=== PATIENT | male | born 1950 | race Caucasian/White ===

== ENCOUNTER 2018-01-20 11:35 | Emergency (ER) | payer OTHER, SELFPAY ==
[2018-01-20 11:41] VITALS: RESP 17; TEMP 37.2; O2SAT 96
--- NOTE | 2018-01-20 11:55 | W.ED.GENAD ---
Discharge Plan Disposition Patient Disposition: HOME Condition: Stable Discharge Details Chief Complaint: Orthopedic Clinical Impression: Injury of knee, left Primary Care Provider: Batool Padilla ED Provider: Bea Garcia Home Meds and New Rx's Prescriptions: Continue ibuprofen [Motrin IB] 200 MG tablet 200 mg PO PRN RF: 0 aspirin [Aspir-Low] 81 MG tablet,delayed release (DR/EC) 81 mg PO DAILY RF: 0 Discharge Instructions Instructions: Knee Pain (ED), Knee Immobilizer (ED) Additional Instructions: Please return immediately to the emergency department if you develop any new or worsening symptoms or if you become otherwise concerned. It is extremely important that you make an appointment to be seen by your primary care doctor and by an orthopedic surgeon in follow-up this visit. Stand Alone Forms: Work Release Referrals: Saul Muhammad MD [[facility] STAFF PHYSICIAN] - Batool Padilla MD [Primary Care Provider] - Medical Decision Making Saritha Guzman is a 67-year-old man without history of major medical problems presenting to the emergency department with knee pain after hyperextending his knee with mechanical fall. On exam patient is very well and nontoxic appearing. There is no effusion and no anterior, medial, or lateral tenderness palpation of the knee. Diffuse posterior tenderness to palpation of the posterior knee without edema or fluctuance. DP pulses are intact and symmetric. The left leg is neurovascularly intact. Exam/history is not consistent with popliteal or other vascular trauma, not mechanical fall, significant injury to the other extremities, head, neck, thorax, abdomen. Low suspicion for fracture. Concern for ligamentous versus meniscal injury. Plan for x-rays, ibuprofen. X-ray shows no acute process. Plan for knee immobilizer, patient reports that he has cane at home to use with knee immobilizer. Plan for ibuprofen/Tylenol and outpatient follow-up with orthopedics. Patient bearing weight with the immobilizer without issue. Lengthy discussion with patient regarding return to emergency department precautions and reports of outpatient follow-up with PCP and orthopedics. Patient is amenable to the plan. Medical Records Medical records reviewed: Yes I reviewed the patient's medical records. Imaging Data Radiologic Study: Attestation: I personally reviewed and interpreted this imaging study as follows: Radiologist's impression: LEFT KNEE: The joint spaces are well maintained. There is mild periarticular spurring. No fracture is identified. IMPRESSION: Mild degenerative changes. HPI General Mode of arrival: ambulatory. Date/Time Provider Initiated Documentation: 01/20/18 11:54. Limitations to Documentation: no limitations. Information obtained by: patient, family, RN notes reviewed and old records reviewed. HPI Narrative: Saritha Guzman is a 67 y/o man without history of major medical problems presenting to the emergency department with knee pain. 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 He was climbing down from his [place]aval[place] when he slipped and fell, landing with his knee hyperextended. Did not hit his head or lose consciousness. Patient reports no preceding symptoms, and that fall was mechanical. Patient reports that he has pain with flexing his knee. Pain is located in the posterior aspect of his knee. He denies any other injury or any other pain. He has no numbness, tingling, weakness. No swelling. Patient reports mild dry cough over the past 2 weeks, otherwise has been in his usual state of health without symptoms. Eating and drinking as usual. No recent travel. No prior surgery or major injuries to the left knee. Related Data Home Medications Medication Instructions Recorded Confirmed ibuprofen [Motrin IB] 200 mg PO PRN 08/07/14 01/20/18 aspirin [Aspir-Low] 81 mg PO DAILY tab 09/24/17 01/20/18 Allergies Allergy/AdvReac Type Severity Reaction Status Date / Time No Known Drug Allergies Allergy Unverified 01/20/18 12:06 General Stated Complaint: Orthopedic ARMANDO: 4 Review of Systems Review of Systems Constitutional: denies fevers Eyes: denies eye pain ENT: denies facial pain, dental pain, sore throat Cardiovascular: denies chest pain Respiratory: denies SOB, cough GI: denies abdominal pain, vomiting, diarrhea : denies flank pain MSK: denies back pain, neck pain, myalgias, reports left knee pain Skin: denies rash Neuro: denies headaches, lightheadedness, weakness, n/t PFSH Family History Mother Stroke Father No problems noted. RGT ELBOW SURGERY (05/28/09) Family History Mother Stroke Father No problems noted. Social History Smoking/Tobacco Use Status: Current every day Surgical History RGT ELBOW SURGERY (05/28/09) Social History Smoking/Tobacco Use Status: Current every day Exam Narrative Exam Narrative: Constitutional: well and [id number], pleasant, conversing normally HENT: head atraumatic, normocephalic normal inspection, mucous membranes moist Eyes: conjunctiva normal, sclera normal, pupils 3mm b/l Neck: no stridor, normal ROM, trachea midline Chest: normal inspection Resp: normal work of breathing Cardio: normal rate, normal rhythm Skin: warm, dry, normal color, no rash Neuro: alert, not altered, grossly non-focal, normal tone Ext: no edema. Left knee nontender to palpation over anterior, medial, lateral aspect. Tenderness palpation over the posterior aspect that reproduces pain. There is no effusion or edema of the knee. No overlying skin changes. DP pulses and popliteal pulses are intact and symmetric. Negative anterior/posterior drawer test. Pain with valgus stress. Left hip, thigh, lower leg, ankle nontender to palpation. Patient able to range the knee fully, though with some pain. Psych: normal mood, normal affect, normal behavior Course Vital Signs Temperature 37.2 C 01/20/18 11:41 Respiratory Rate 17 01/20/18 11:41 Pulse Oximetry 96 01/20/18 11:41 Temperature 37.2 C 01/20/18 11:41 Respiratory Rate 17 01/20/18 11:41 Blood Pressure Position Supine 01/20/18 11:41 Pulse Oximetry 96 01/20/18 11:41 Oxygen Delivery Method Room Air 01/20/18 11:41 Oxygen Flow Rate 0 01/20/18 11:41 Pain Level 10 01/20/18 11:41
--- NOTE | 2018-01-20 12:01 | ED.GENADUL_ITS ---
Discharge Plan Disposition Patient Disposition: HOME Condition: Stable Discharge Details Chief Complaint: Orthopedic Clinical Impression: Injury of knee, left Primary Care Provider: Batool Padilla ED Provider: Bea Garcia Home Meds and New Rx's Prescriptions: Continue ibuprofen [Motrin IB] 200 MG tablet 200 mg PO PRN RF: 0 aspirin [Aspir-Low] 81 MG tablet,delayed release (DR/EC) 81 mg PO DAILY RF: 0 Discharge Instructions Instructions: Knee Pain (ED), Knee Immobilizer (ED) Additional Instructions: Please return immediately to the emergency department if you develop any new or worsening symptoms or if you become otherwise concerned. It is extremely important that you make an appointment to be seen by your primary care doctor and by an orthopedic surgeon in follow-up this visit. Stand Alone Forms: Work Release Referrals: Saul Muhammad MD [[facility] STAFF PHYSICIAN] - Batool Padilla MD [Primary Care Provider] - Medical Decision Making Saritha Gumzan is a 67-year-old man without history of major medical problems presenting to the emergency department with knee pain after hyperextending his knee with mechanical fall. On exam patient is very well and nontoxic appearing. There is no effusion and no anterior, medial, or lateral tenderness palpation of the knee. Diffuse posterior tenderness to palpation of the posterior knee without edema or fluctuance. DP pulses are intact and symmetric. The left leg is neurovascularly intact. Exam/history is not consistent with popliteal or other vascular trauma, not mechanical fall, significant injury to the other extremities, head, neck, thorax, abdomen. Low suspicion for fracture. Concern for ligamentous versus meniscal injury. Plan for x-rays, ibuprofen. X-ray shows no acute process. Plan for knee immobilizer, patient reports that he has cane at home to use with knee immobilizer. Plan for ibuprofen/Tylenol and outpatient follow-up with orthopedics. Patient bearing weight with the immobilizer without issue. Lengthy discussion with patient regarding return to emergency department precautions and reports of outpatient follow-up with PCP and orthopedics. Patient is amenable to the plan. Medical Records Medical records reviewed: Yes I reviewed the patient's medical records. Imaging Data Radiologic Study: Attestation: I personally reviewed and interpreted this imaging study as follows: Radiologist's impression: LEFT KNEE: The joint spaces are well maintained. There is mild periarticular spurring. No fracture is identified. IMPRESSION: Mild degenerative changes. HPI General Mode of arrival: ambulatory . Date/Time Provider Initiated Documentation: 01/20/18 11:54 . Limitations to Documentation: no limitations . Information obtained by: patient, family, RN notes reviewed and old records reviewed . HPI Narrative: Saritha Guzman is a 67 y/o man without history of major medical problems presenting to the emergency department with knee pain. 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 He was climbing down from his zavaleta when he slipped and fell, landing with his knee hyperextended. Did not hit his head or lose consciousness. Patient reports no preceding symptoms, and that fall was mechanical. Patient reports that he has pain with flexing his knee. Pain is located in the posterior aspect of his knee. He denies any other injury or any other pain. He has no numbness, tingling, weakness. No swelling. Patient reports mild dry cough over the past 2 weeks, otherwise has been in his usual state of health without symptoms. Eating and drinking as usual. No recent travel. No prior surgery or major injuries to the left knee. Related Data Home Medications Medication Instructions Recorded Confirmed ibuprofen [Motrin IB] 200 mg PO PRN 08/07/14 01/20/18 aspirin [Aspir-Low] 81 mg PO DAILY tab 09/24/17 01/20/18 Allergies Allergy/AdvReac Type Severity Reaction Status Date / Time No Known Drug Allergies Allergy Unverified 01/20/18 12:06 General Stated Complaint: Orthopedic ARMANDO: 4 Review of Systems Review of Systems Constitutional: denies fevers Eyes: denies eye pain ENT: denies facial pain, dental pain, sore throat Cardiovascular: denies chest pain Respiratory: denies SOB, cough GI: denies abdominal pain, vomiting, diarrhea : denies flank pain MSK: denies back pain, neck pain, myalgias, reports left knee pain Skin: denies rash Neuro: denies headaches, lightheadedness, weakness, n/t PFSH Family History Mother Stroke Father No problems noted. RGT ELBOW SURGERY (05/28/09) Family History Mother Stroke Father No problems noted. Social History Smoking/Tobacco Use Status: Current every day Surgical History RGT ELBOW SURGERY (05/28/09) Social History Smoking/Tobacco Use Status: Current every day Exam Narrative Exam Narrative: Constitutional: well and [id number], pleasant, conversing normally HENT: head atraumatic, normocephalic normal inspection, mucous membranes moist Eyes: conjunctiva normal, sclera normal, pupils 3mm b/l Neck: no stridor, normal ROM, trachea midline Chest: normal inspection Resp: normal work of breathing Cardio: normal rate, normal rhythm Skin: warm, dry, normal color, no rash Neuro: alert, not altered, grossly non-focal, normal tone Ext: no edema. Left knee nontender to palpation over anterior, medial, lateral aspect. Tenderness palpation over the posterior aspect that reproduces pain. There is no effusion or edema of the knee. No overlying skin changes. DP pulses and popliteal pulses are intact and symmetric. Negative anterior/ posterior drawer test. Pain with valgus stress. Left hip, thigh, lower leg, ankle nontender to palpation. Patient able to range the knee fully, though with some pain. Psych: normal mood, normal affect, normal behavior Course Vital Signs Temperature 37.2 C 01/20/18 11:41 Respiratory Rate 17 01/20/18 11:41 Pulse Oximetry 96 01/20/18 11:41 Temperature 37.2 C 01/20/18 11:41 Respiratory Rate 17 01/20/18 11:41 Blood Pressure Position Supine 01/20/18 11:41 Pulse Oximetry 96 01/20/18 11:41 Oxygen Delivery Method Room Air 01/20/18 11:41 Oxygen Flow Rate 0 01/20/18 11:41 Pain Level 10 01/20/18 11:41
[2018-01-20] MEDS: Ibuprofen 600 MG TAB PO (12:09)
--- NOTE | 2018-01-20 12:25 | DI.RAD_ITS ---
SYMPTOM/DIAGNOSIS: TRAUMA, HYPEREXTENDED, POST KNEE PAIN LEFT KNEE: The joint spaces are well maintained. There is mild periarticular spurring. No fracture is identified. IMPRESSION: Mild degenerative changes.
== END 2018-01-20 13:31 | disposition home or self-care (01) ==
PROVIDERS: Emergency Provider Student in an Organized Health Care Education/Training Program; PCP Internal Medicine
DX: M25.562 Pain in left knee (principal); W01.0XXA Fall on same level from slipping, tripping and stumbling without subsequent striking against object, initial encounter
CPT/HCPCS: 73562; 99283; 99282; L1830

== ENCOUNTER 2018-02-28 01:30 | Outpatient (CLI) | payer OTHER, SELFPAY ==
--- NOTE | 2018-02-28 14:42 | DI.MRI_ITS ---
SYMPTOMS/DIAGNOSIS: KNEE STRAIN MRI OF THE LEFT KNEE: Comparison is made with plain films dated January,. Fat-suppressed T2 axial, proton density and fat-suppressed T2 coronal and sagittal and proton density oblique sagittal sequences were performed. The cruciate and collateral ligaments and extensor mechanism appear intact. There is a small joint effusion. There is a question of two small loose bodies seen posterior to the medial femoral condyle. There is a focal osteochondral defect involving the lateral aspect of the medial femoral condyle, near the intercondylar notch. This defect measures 6-7 mm in size. There is cartilage thinning extending down to bone involving the medial aspect of the lateral tibial plateau anteriorly. There is a mild amount of edema in the medial patellar facet cartilage. Degenerative changes are seen in both menisci. No superimposed tear is seen. IMPRESSION: Osteochondral defect of the lateral aspect of the medial femoral condyle and posterior joint space loose body. A small cartilage defect is also seen at the lateral tibial plateau and anterior aspect of the lateral femoral condyle.
== END 2018-02-28 01:50 ==
PROVIDERS: PCP Internal Medicine; Visit Provider Orthopaedic Surgery
DX: M25.562 Pain in left knee (principal); M95.8 Other specified acquired deformities of musculoskeletal system; M23.42 Loose body in knee, left knee
CPT/HCPCS: 73721

== ENCOUNTER 2018-03-30 09:56 | Outpatient (CLI) | payer SELFPAY ==
--- NOTE | 2018-03-31 18:13 | W.PREOPHP ---
Date of service: 03/30/18 Time of Service: 08:01 Assessment and Plan (1) Internal derangement of knee: Current visit: Yes Status: Acute The patient is instructed of knee anatomy, the typical operative procedure with an arthroscopic investigation of his knee and procedures used to address any pathology like a meniscal tear. the typical postop course and possible complications that can occur with an arthroscopy are outlined. 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 At a 1212 office visit he was seen complaining of weightbearing pain and pain with knee flexion with one episode of giving way with no large effusions evident. He was sent to PT which initially seemed to help then he plateaued in improvement. He began to be troubled more by night pain and a dull constant ache with sitting laterally with his knee flexed using Motrin 800 mg 3 times daily. To max out all conservative measures an intra-articular injection of cortisone was tried on 03/03/2018. This initially was encouraging providing some help with his pain but then he began to note more pain with squatting and with activities with a flexed knee posture like exiting the toilet. He cannot perform the activities he would like to in life so an arthroscopic exam of his knee was suggested by Dr. Christopher looking for any internal derangement. Pertinent Surgical Information Denies previous medical history of: stroke, TIA, [place], use of sublingual nitroglycerin, GERD, seizures, diabetes, thyroid disease, sleep apnea, liver disease, hepatitis, hematologic disorders Denies previous complications from surgery or anesthesic agents with respect to high fever, prolonged vomiting and difficulty waking up Review of Systems Constitutional Denies fever(s) and Denies headache(s) ENT Denies headache(s), Denies nasal congestion, Denies nasal discharge and Denies sore throat Cardiovascular Denies chest pain, Denies chest pain with activity, Denies palpitations, Denies dyspnea on exertion, Denies orthopnea and Denies paroxysmal nocturnal dyspnea Respiratory Denies cough, Denies excessive phlegm production, Denies pain on inspiration, Denies dyspnea on exertion and Denies wheezing Gastrointestinal Denies abdominal pain, Denies melena, Denies hematochezia, Denies nausea and Denies vomiting Genitourinary Denies hematuria, Denies dysuria and Denies urinary frequency Musculoskeletal Reports as per HPI Neurologic Denies headache(s) Psychiatric Denies anxiety and Denies depression Endocrine Denies palpitations Allergic/Immunologic Denies wheezing PFSH Medical History BMI (body mass index) 20.0-29.9 (Acute) Encounter for colonoscopy due to history of adenomatous colonic polyps (Chronic) Surgical History RGT ELBOW SURGERY (Resolved 05/28/09) Social History household members: spouse marital status: leisure activities: clubs Smoking and Tabacco status: Current every day Tobacco: How many years used: 40 alcohol intake: never Meds Home Medications Medication Instructions Recorded Confirmed Type ibuprofen [Motrin IB] 200 mg PO PRN 08/07/14 03/30/18 History aspirin [Aspir-Low] 81 mg PO DAILY tab 09/24/17 03/30/18 History Allergies Allergy/AdvReac Type Severity Reaction Status Date / Time No Known Drug Allergies Allergy Verified 03/30/18 08:05 Exam Const General: cooperative HENMT Throat: posterior oropharynx normal Eyes General: appearance normal, both eyes and all related structures Conjunctivae: conjunctivae normal Sclera: sclerae normal Neck Neck: no JVD Carotids: normal carotid upstroke and no bruits Resp Effort & Inspection: normal respiratory effort and able to speak in complete sentences Auscultation: clear to auscultation bilaterally, no rales, no rhonchi and no wheezes Cardio Rate: regular rate Heart Sounds: S1 normal, S2 normal and no murmurs Bruits: no abdominal aortic bruits Pulses: normal peripheral pulses Other: No pulsatile mass noted with palpation over the abdominal aorta GI Palpation: soft and no hepatosplenomegaly Auscultation: normal bowel sounds General: No CVA tenderness Extrem General: muscle atrophy Other: positive lateral joint line tenderness, positive thessaly,full extensionwith flexion intact to 120
--- NOTE | 2018-03-31 18:58 | HPE_ITS ---
Date of service: 03/30/18 Time of Service: 08:01 Assessment and Plan (1) Internal derangement of knee: Current visit: Yes Status: Acute The patient is instructed of knee anatomy, the typical operative procedure with an arthroscopic investigation of his knee and procedures used to address any pathology like a meniscal tear. the typical postop course and possible complications that can occur with an arthroscopy are outlined. 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 At a 1212 office visit he was seen complaining of weightbearing pain and pain with knee flexion with one episode of giving way with no large effusions evident. He was sent to PT which initially seemed to help then he plateaued in improvement. He began to be troubled more by night pain and a dull constant ache with sitting laterally with his knee flexed using Motrin 800 mg 3 times daily. To max out all conservative measures an intra- articular injection of cortisone was tried on 03/03/2018. This initially was encouraging providing some help with his pain but then he began to note more pain with squatting and with activities with a flexed knee posture like exiting the toilet. He cannot perform the activities he would like to in life so an arthroscopic exam of his knee was suggested by Dr. Christopher looking for any inte rnal derangement. Pertinent Surgical Information Denies previous medical history of: stroke, TIA, [place], use of sublingual nitroglycerin, GERD, seizures, diabetes, thyroid disease, sleep apnea, liver disease, hepatitis, hematologic disorders Denies previous complications from surgery or anesthesic agents with respect to high fever, prolonged vomiting and difficulty waking up Review of Systems Constitutional Denies fever(s) and Denies headache(s) ENT Denies headache(s), Denies nasal congestion, Denies nasal discharge and Denies sore throat Cardiovascular Denies chest pain, Denies chest pain with activity, Denies palpitations, Denies dyspnea on exertion, Denies orthopnea and Denies paroxysmal nocturnal dyspnea Respiratory Denies cough, Denies excessive phlegm production, Denies pain on inspiration, Denies dyspnea on exertion and Denies wheezing Gastrointestinal Denies abdominal pain, Denies melena, Denies hematochezia, Denies nausea and Denies vomiting Genitourinary Denies hematuria, Denies dysuria and Denies urinary frequency Musculoskeletal Reports as per HPI Neurologic Denies headache(s) Psychiatric Denies anxiety and Denies depression Endocrine Denies palpitations Allergic/Immunologic Denies wheezing PFSH Medical History BMI (body mass index) 20.0-29.9 (Acute) Encounter for colonoscopy due to history of adenomatous colonic polyps (Chronic) Surgical History RGT ELBOW SURGERY (Resolved 05/28/09) Social History household members: spouse marital status: leisure activities: clubs Smoking and Tabacco status: Current every day Tobacco: How many years used: 40 alcohol intake: never Meds Home Medications Medication Instructions Recorded Confirmed Type ibuprofen [Motrin IB] 200 mg PO PRN 08/07/14 03/30/18 History aspirin [Aspir-Low] 81 mg PO DAILY tab 09/24/17 03/30/18 History Allergies Allergy/AdvReac Type Severity Reaction Status Date / Time No Known Drug Allergies Allergy Verified 03/30/18 08:05 Exam Const General: cooperative HENMT Throat: posterior oropharynx normal Eyes General: appearance normal, both eyes and all related structures Conjunctivae: conjunctivae normal Sclera: sclerae normal Neck Neck: no JVD Carotids: normal carotid upstroke and no bruits Resp Effort & Inspection: normal respiratory effort and able to speak in complete sentences Auscultation: clear to auscultation bilaterally, no rales, no rhonchi and no wheezes Cardio Rate: regular rate Heart Sounds: S1 normal, S2 normal and no murmurs Bruits: no abdominal aortic bruits Pulses: normal peripheral pulses Other: No pulsatile mass noted with palpation over the abdominal aorta GI Palpation: soft and no hepatosplenomegaly Auscultation: normal bowel sounds General: No CVA tenderness Extrem General: muscle atrophy Other: positive lateral joint line tenderness, positive thessaly,full extensionwith flexion intact to 120
== END 2018-03-30 10:16 ==
PROVIDERS: PCP Internal Medicine; Visit Provider Orthopaedic Surgery
DX: M23.92 Unspecified internal derangement of left knee (principal); Z01.818 Encounter for other preprocedural examination

== ENCOUNTER 2018-04-04 07:28 | Day surgery (SDC) | payer OTHER, SELFPAY ==
[2018-04-04] VITALS (8 sets, daily range): BP systolic 138–173; BP diastolic 72–94; PULSE 70–82; RESP 9–18; TEMP 36.4–36.7; O2SAT 94–98
[2018-04-04] MEDS: Lactated Ringers 1,000 ML 80 ML IV (08:30)
--- NOTE | 2018-04-04 10:14 | PDOC.DSDIS_ITS ---
Discharge Plan Disposition Patient Disposition: HOME Condition: Good Discharge Details Reason For Visit: INTERNAL DERANGEMENT (L) KNEE Attending Provider: Tremayne Christopher Primary Care Provider: Batool Padilla Home Meds and New Rx's Prescriptions: New ibuprofen 800 mg tablet 800 mg PO TID Qty: 30 RF: 0 oxycodone-acetaminophen 5-325 mg tablet 1 tab PO Q6H PRN (Reason: pain) Qty: 14 RF: 0 Continued ibuprofen [Motrin IB] 200 MG tablet 800 mg PO Q8H PRN PRNRF: 0 aspirin [Aspir-Low] 81 MG tablet,delayed release (DR/EC) 81 mg PO DAILY RF: 0 Discharge Instructions Additional Instructions: Elevate L leg on 1-2 pillows as much as possible for next 48 hours. Apply cryocuff to L knee continuously overnite. Tomorrow, start to use cryocuff 4 times/day for 1 hour each time. Crutches to walk. Put as much weight on L leg as your pain allows. Discontinue crutches when you can step fully on L leg with only mild pain. May remove dressings, shower and get incisions wet after 48 hours. Leave incisions uncovered when they are dry and sealed. Outpatient physical therapy on Wed to begin rehab L knee post-arthroscopic partial lateral meniscectomy. Follow up in 's office in 2 weeks. Referrals: Tremayne Christopher MD [ [facility] ST[facility]FF PHYSICIAN] - (f/u in 2 weeks) Equipment/Supplies: Partial Weight Bearing Crutches Activity:: Activity as Tolerated Remove Dressings/Wound Care:: 48 hours Shower/Bathe:: 48 hours Diet:: As Tolerated Discharge Orders Discharge Orders: Discharge Order (Routine); Ordered 04/04/18 Ordered By: Tremayne Christopher DS: Diagnosis Discharge Diagnosis (1) Internal derangement of knee: Status: Acute
[2018-04-04] MEDS: oxyCODONE-CR 10 MG TABCR PO (11:45)
--- NOTE | 2018-04-06 13:44 | ROE_ITS ---
REPORT OF OPERATIVE PROCEDURE DATE OF PROCEDURE April 04, 2018 PREOPERATIVE DIAGNOSIS Internal derangement left knee. POSTOPERATIVE DIAGNOSIS Internal derangement left knee due to torn left lateral meniscus. PROCEDURE Arthroscopic partial left lateral meniscectomy with limited chondroplasty medial femoral condyle, johnson ited synovectomy. ANESTHESIA General. SURGEON Tremayne Christopher M.D. INDICATIONS This is a 67-year-old white male who has had ongoing pain and swelling in his left knee for over six months. This has failed to respond to conservative treatment, including injection. Because of failure to respond to conservative treatment, arthroscopy was recommended. The risks and complications of th e procedure were explained to the patient in detail preop. PROCEDURE The patient was taken to the Operating Room on 04/04/2018. He was placed supine on the Operating Table . A general anesthetic was administered. The left thigh was placed in the arthroscopic leg aviles a nd he left knee was prepped and draped free in the usual sterile fashion. Arthroscopic portals were established. The left knee was inflated with normal saline solution using the arthroscopy pump. Then routine arthroscopic examination proceeded. Intraoperative photographs were obtained to document th e findings. Upon entering the medial compartment, his medial meniscus looked intact. I probed the medial meniscus under direct vision and found it to be fully stable. No occult tears of the meniscus was noted. Ther e was an area of the medial femoral condyle that did not involve the weightbearing surface that was d eficit in articular cartilage. This was on the lateral side of the medial femoral condyle. The area t hat was devoid are articular cartilage was irregular in contour. I took the high radiofrequency elect rocautery wand and smoothed the irregularities so there was a smooth contour. The intercondylar notch was intact to anteriorly and posterior cruciate ligaments. The lateral compar tment showed normal articular cartilage in the lateral compartment, but there was a posterior horn te ar in the lateral meniscus extending to the popliteus recess. The tear was resected using high radio frequency electrocautery wand back to a stable rim. The remaining rim of the lateral meniscus was pro bed under direct vision, was fully stable. The medial gutters showed some moderate synovitis, and a r esidual plica. The high radiofrequency electrocautery wand was then used to ablate the hypertrophic s ynovium and the plica. The suprapatellar pouch was clear. The patellofemoral joint showed normal patella tracking. No chondromalacia seen in the patellofemora l joint. The articular cartilage and patellofemoral joint was well preserved. At this point, the knee was copiously irrigated with saline solution until the outflow was clear. 20 cc of 0.25% Marcaine wi th epinephrine solution along with 4 mg of Morphine were instilled into the left knee. All the instr uments were removed from the knee. The arthroscopy portals were infiltrated with 0.25% Marcaine with epinephrine solution and were approximated with interrupted #4-0 Nylon sutures. Sterile dressings w ere applied, followed bulky compressive dressing to the left knee. The patient's anesthesia was rever sed without complications. Blood loss was minimal. He was discharged to the Recovery Room in good c ondition. The patient was discharged home from the Day Surgery unit when fully recovered from his General anest hesia. He was given instructions to elevate his left knee on one to two pillows as much as possible f or the next 48 hours. He will apply a Cryo/Cuff to his left knee continuously overnight and then star ting on 04/05/18, will use the Cryo/Cuff 4 times a day for an hour each time. He will use crutches to walk. Weightbearing as tolerated to the left leg. He may discontinue the crutches when he can step fu lly on the left leg with minimal discomfort. He may remove his dressing, shower and get his incision wet in 48 hours. He can leave the incisions uncovered when they are dry and sealed. He will begin out patient physical therapy on 04/06 or 04/07/18 for rehab of his left knee. He is given a prescription fo r inflammation of ibuprofen 800 mg p.o. t.i.d. for 10 days, and a prescription for pain of hydrocodon e with APAP 5/325 1 tablet every 6 hours if needed for breakthrough pain. He will followup in my offi ce in two weeks.
== END 2018-04-04 12:40 | disposition home or self-care (01) ==
PROVIDERS: PCP Internal Medicine; Visit Provider Orthopaedic Surgery
PROC: (CPT 29870; principal; 2018-04-04 08:30)
DX: S83.282A Other tear of lateral meniscus, current injury, left knee, initial encounter (principal); X50.9XXA Other and unspecified overexertion or strenuous movements or postures, initial encounter; Y99.0 Civilian activity done for income or pay; M67.262 Synovial hypertrophy, not elsewhere classified, left lower leg; M67.52 Plica syndrome, left knee
CPT/HCPCS: 29881; E0114; J0690

== ENCOUNTER 2018-06-14 07:25 | Outpatient (CLI) | payer OTHER, SELFPAY ==
--- NOTE | 2018-06-14 10:10 | DI.RAD_ITS ---
SYMPTOMS/DIAGNOSIS: PAIN LEFT KNEE: Two views. Comparison 01/20/18. There is mild periarticular spurring in the medial femoral tibial joint space and the patellofemoral joint which appears stable. The bones show no acute fracture, dislocation, lytic or sclerotic lesion. There is a persistent calcific density inferior to the patella. The soft tissues are otherwise unremarkable. IMPRESSION: Stable degenerative changes of the left knee.
== END 2018-06-14 07:45 ==
PROVIDERS: PCP Internal Medicine; Visit Provider Physician Assistant Surgical
DX: M25.562 Pain in left knee (principal); M17.12 Unilateral primary osteoarthritis, left knee
CPT/HCPCS: 73560

== ENCOUNTER 2018-06-22 00:51 | Outpatient (CLI) | payer OTHER, SELFPAY ==
--- NOTE | 2018-06-22 07:12 | DI.US_ITS ---
SYMPTOM/DIAGNOSIS: SCREENING FOR AAA, Z13.6 AORTA ULTRASOUND: Sonographic evaluation of the abdominal aorta was performed. There is no evidence of an abdominal aortic aneurysm. The largest diameter of the abdominal aorta is seen proximally and measures 2.7 cm. The right iliac artery measures 1.1 by 1.2 cm. The left common iliac artery measures 1.3 by 1.4 cm. IMPRESSION: No sonographic evidence of an abdominal aortic aneurysm.
[2018-06-22 09:08] LABS: Anion Gap 7.1 mmol/L (3-11); BUN 14 mg/dL (7-18); CO2 29.9 mmol/L (21.0-32.0); CREATININE 1.19 mg/dL (0.70-1.30); Calcium 8.8 mg/dL (8.5-10.1); Chloride 104 mmol/L (98-107); Cholesterol 161 mg/dL (50-200); Glucose 120 mg/dL (70-100); HDL Cholesterol 29 mg/dL (40-60); LDL CHOLESTEROL 102 mg/dL (<100); Sodium 141 mmol/L (136-145); Triglyceride 201 mg/dL (30-150)
[2018-06-23 11:57] LABS: Hepatitis C Ab w Rflx HCV PCR Negative (NEGAT)
== END 2018-06-22 01:11 ==
PROVIDERS: PCP Internal Medicine; Visit Provider Internal Medicine
DX: Z13.6 Encounter for screening for cardiovascular disorders (principal); Z91.89 Other specified personal risk factors, not elsewhere classified; Z11.59 Encounter for screening for other viral diseases; R03.0 Elevated blood-pressure reading, without diagnosis of hypertension; F17.200 Nicotine dependence, unspecified, uncomplicated
CPT/HCPCS: 36415; 76706; 80048; 80061; 83721; 86803

== ENCOUNTER 2018-07-29 08:11 | Day surgery (SDC) | payer BC, SELFPAY ==
[2018-07-29 08:18] VITALS: BP 146/76; PULSE 70; RESP 19; TEMP 36.3; O2SAT 93
[2018-07-29] MEDS: Lactated Ringers 1,000 ML 80 ML IV (08:41)
--- NOTE | 2018-07-29 09:55 | BOWEL_PTH ---
PATIENT: Saritha Guzman LOC: [facility] U#:[id number] AGE/SX: 67/M ROOM: RE07/29/[address]: Catina Ortiz : 1950 BED: DIS: 07/29/2018 SPEC #: [id number] RECD: 07/29/18 12:09 STATUS: MATTHIAS REQ #: [id number] LINO: 07/29/18 09:[address]: Catina Ortiz DEPT: Surgical Specimen RECD BY: Felicia Eason ENTERED: 07/29/18 12:09 SP TYPE: Bowel OTHR DR: Batool Padilla MD Tissues: 1 - BIOPSY BOWEL Procedures: GROSS AND MICRO LEVEL 4 Comments: [id number]
--- NOTE | 2018-07-29 10:13 | W.COLOREPORT ---
Date of service: 07/29/18 Time of Service: 10:13 Colonoscopy Report Date of procedure: 07/29/18 Pre-op diagnosis general: A. polyps Post-op diagnosis procedure note: same Procedure: x1 polyp @ 50cm Surgeon: Catina Ortiz Anesthesia proc note operative: GETA Estimated blood loss (mL): 2 Pathology: other Complications: None Disposition: PACU Prep: Miralax Retraction Time: 12mins Procedure Description: After informed consent was obtained the patient was taken to the procedure room and placed in a left decubitous position. Monitors were applied and a time out was done. The patients name, date of , procedure, allergies to medications and metal in their body was reviewed. The patient was then sedated. Once sedated and comfortable a rectal exam was done. External exam was normal. Internal exam revealed a normal sphincter tone and no palpable masses. The prostate not palpable. The scope was then introduced and retrofelexed. no internal hemorrhoids were identified. The scope was then advanced to the cecum without difficulty. The TI and appendiceal orifice were identified. The prep was good. The scope was then slowly retracted over 12 minutes back into the rectum. Polyps were removed at 50cm/transvers w/ a cold biter. The scope was removed and the patient was woken up and taken back to Same day surgery in stable condition. no diverticula and musocas appears nl. The patient tolerated the procedure well and there were no immediate complications. Follow up: The patient should follow up in 3-5 yrs- path pd, years unless they develop changes in bowel habits or other new gastrointestinal complaints.
--- NOTE | 2018-07-29 10:18 | COLE_ITS ---
Date of service: 07/29/18 Time of Service: 10:13 Colonoscopy Report Date of procedure: 07/29/18 Pre-op diagnosis general: A. polyps Post-op diagnosis procedure note: same Procedure: x1 polyp @ 50cm Surgeon: Catina Ortiz Anesthesia proc note operative: GETA Estimated blood loss (mL): 2 Pathology: other Complications: None Disposition: PACU Prep: Miralax Retraction Time: 12mins Procedure Description: After informed consent was obtained the patient was taken to the procedure room and placed in a left decubitous position. Monitors were applied and a time out was done. The patients name, date of , procedure, allergies to medications and metal in their body was reviewed. The patient was then sedated. Once sedated and comfortable a rectal exam was done. External exam was normal. Internal exam revealed a normal sphincter tone and no palpable masses. The prostate not palpable. The scope was then introduced and retrofelexed. no internal hemorrhoids were id entified. The scope was then advanced to the cecum without difficulty. The TI and appendiceal orifice were identified. The prep was good. The scope was then slowly retracted over 12 minutes back into the rectum. Polyps were removed at 50cm/transvers w/ a cold biter. The scope was removed and the patient was woken up and taken back to Same day surgery in stable condition. no diverticula and m usocas appears nl. The patient tolerated the procedure well and there were no immediate complications. Follow up: The patient should follow up in 3-5 yrs- path pd, years unless they develop changes in bowel habits or other new gastrointestinal complaints.
--- NOTE | 2018-07-29 10:18 | W.PM.DSUDISC ---
Discharge Plan Disposition Patient Disposition: HOME Condition: Good Discharge Details Reason For Visit: CE Attending Provider: Catina Ortiz Primary Care Provider: Batool Padilla Home Meds and New Rx's Prescriptions: Discontinued ibuprofen 800 mg tablet 800 mg PO PRN RF: 0 polyethylene glycol 3350 17 gram/dose powder 238 g PO ONCE Qty: 238 RF: 0 bisacodyl [Dulcolax (bisacodyl)] 5 mg tablet,delayed release (DR/EC) 5 mg PO ONCE Qty: 4 RF: 0 aspirin [Aspir-Low] 81 MG tablet,delayed release (DR/EC) 81 mg PO DAILY RF: 0 Discharge Instructions Additional Instructions: Findings:x1 sm polyp No ASA?NSAID's (ibuprofen) x2 wks will send a letter w/ results of polyp in 2-3 wks and when to repeat scope Follow up: 3-5 yrs- path pd Please call if you develop: fevers >101.5 Nausea or Vomiting Abdominal pain that is not transient DAY SURGERY UNIT POST COLONOSCOPY INSTRUCTIONS 1. Because there will be medication in your system for the next 24 hours, you may feel a little sleepy. Your coordination will be affected. Therefore: a. Do not drive or operate dangerous equipment for 24 hours. b. Do not drink alcohol beverages for 24 hours (not even beer). c. Plan to go home and rest for the day. 2. Generally there are no restrictions on your activity after a day or so has gone by, but you may feel a bit fatigued for a few days. 3 After you arrive home you may have a light meal and return to a normal diet as you can tolerate it without feeling sick to your stomach. 4. After surgery, you may feel pain or discomfort. This should be only transient, but if it persists please contact your doctor. 5. If there are any questions regarding the findings of your procedure, please feel free to contact your doctor. 6. If you are unable to contact your doctor with a problem, contact the hospital at [phone]. 7. Continue all your regular medications unless directed otherwise. I understand the above instructions and have no questions. Signature of Patient or Responsible Adult Escort Date/Time Name of Responsible Adult Escort Signature of Nurse Date/Time Stand Alone Forms: Farnaz Bearden (DSU) Activity:: no heavy lifting or strenuous acitivty x 24 hrs Diet:: sm lt meals x 24 hrs Discharge Orders Discharge Orders: Discharge Order (Routine); Ordered 07/29/18 Ordered By: Catina Ortiz DS: Diagnosis Discharge Diagnosis (1) Serrated adenoma of colon: Status: Acute
[2018-07-29 10:50] VITALS: BP 137/81; PULSE 58; RESP 16; TEMP 35.8; O2SAT 97
== END 2018-07-29 11:00 | disposition home or self-care (01) ==
PROVIDERS: PCP Internal Medicine; Visit Provider Surgery
PROC: 0DJD8ZZ Inspection of Lower Intestinal Tract, Via Natural or Artificial Opening Endoscopic (ICD-10-PCS; CPT 45378; principal; 2018-07-29 09:00)
DX: Z12.11 Encounter for screening for malignant neoplasm of colon (principal); Z86.010 Personal history of colon polyps; D12.3 Benign neoplasm of transverse colon
CPT/HCPCS: 45380; 88305

== ENCOUNTER → 2020-02-07 14:52 | Outpatient (CLI) | payer OTHER, SELFPAY ==
--- NOTE | 2020-02-07 08:00 | DI.RAD_ITS ---
EXAM: XR KNEE LT 3V AP,LAT,QUITA CLINICAL HISTORY: L knee pain. TECHNIQUE: 2D digital imaging was performed. COMPARISON: CR XR knee LT 2V AP,lat from 06/14/2018 FINDINGS: There is mild narrowing of the femoral tibial joint. Mild spurring is seen at the posterior patella. The bones are intact and normally mineralized. No joint effusion is seen. The soft tissues are un remarkable. There is again seen a calcific density inferior to the patella. IMPRESSION: Stable degenerative changes of the knee. DATA REPOSITORY: RADIATION DOSE DELIVERED:
--- NOTE | 2020-02-07 08:31 | DI.RAD_ITS ---
EXAM: XR HIP LT COMPLETE AP PELVIS CLINICAL HISTORY: Hip pain. TECHNIQUE: 2D digital imaging was performed. COMPARISON: No exams were available for comparison FINDINGS: BONES: No acute fracture is present. No bony destructive lesion is seen. JOINTS: No dislocation present. Mild narrowing of the hip joints are seen bilaterally. SOFT TISSUE: Normal. Surgical clips are seen inferior to the pelvis which may represent a prior vasec nilam. IMPRESSION: Mild degenerative changes of the hips. DATA REPOSITORY: RADIATION DOSE DELIVERED:
== END ==
PROVIDERS: PCP Internal Medicine; Visit Provider Physician Assistant
DX: M16.0 Bilateral primary osteoarthritis of hip (principal); M17.12 Unilateral primary osteoarthritis, left knee; M76.892 Other specified enthesopathies of left lower limb, excluding foot
CPT/HCPCS: 73562; 73502

== ENCOUNTER 2020-03-01 04:22 | Outpatient (CLI) | payer OTHER, SELFPAY ==
--- NOTE | 2020-03-01 06:30 | DI.MRI_ITS ---
EXAM: MR LOWER JOINT LT WO CLINICAL HISTORY: Failed previous treatments,H/O MFC CHONDROPLASTY,PARTIAL LATERAL MENISCUS TECHNIQUE: Multiplanar multisequence MRI of the knee was performed. COMPARISON: MR MRI R LOWER JOINT WO CONT from 02/26/2016 MR MR lower joint LT wo from 02/28/2018 CR XR KNEE LT 3V AP,LAT,QUITA from 02/07/2020 CR XR KNEE LT 3V AP,LAT,QUITA from 02/07/2020 FINDINGS: EFFUSION: There is a small joint effusion. Tiny Garcia's cyst in the popliteal fossa. MARROW:There is no evidence of fracture or prominent bone contusion. No ominous osseous lesions. PATELLOFEMORAL COMPARTMENT: The quadriceps tendon is intact. The patellar ligament is intact. There is significant thinning of the retropatellar cartilage which is full-thickness thinning in the inferior half of both facets. In the medial facet there is a 5 fissure defect in the retropatellar c artilage and and immediately subjacent 2 x 2 millimeter defect in the posterior patella which is prob ably a small osteochondral defect.There is no intraosseous signal to suggest recent patellar dislocat ion. There are no patellar retinacular tears. CRUCIATE LIGAMENTS: The anterior cruciate ligament is intact.The posterior cruciate ligament is intac t. MEDIAL COMPARTMENT/MEDIAL MENISCUS: There is a tear in the posterior horn of the medial meniscus, bes t seen on the sagittal images which violates both inferior and superior articular surfaces. No promi nent bucket-handle configuration. The root of the posterior horn is intact. There is no meniscal ex trusion.Myxoid degeneration signal seen in the anterior horn.. Mild chondral signal abnormality noted over the mid weight-bearing surface which appears full thickne ss but not associated with subjacent subarticular bone edema in the femoral condyle. Small marginal osteophytes. MEDIAL COLLATERAL LIGAMENT: Intact LATERAL COMPARTMENT/LATERAL MENISCUS: There is an oblique tear in the posterior horn of the lateral m eniscus. There is meniscal femoral ligament extending to the medial femoral condyle inner surface fr om the posterior horn root region. Myxoid degeneration the anterior horn.There is mild observe minim al signal abnormality in the [place] cartilage over the lateral compartment femoral condyle but ther e is some thinning of the hyaline cartilage over the lateral tibial plateau with very mild subjacent intraosseous edema in the lateral tibial plateau.No osteochondral defects. ILIOTIBIAL BAND: Intact LATERAL COLLATERAL LIGAMENT COMPLEX: The fibular collateral ligament is intact. The biceps femoris t endon is intact.Popliteus muscle and tendon are intact. IMPRESSION: 1. There tears in the posterior horns of both menisci as described above. No bucket-handle configura tion. 2. Significant degenerative changes most evident in the medial and patellofemoral compartments. Ther e is an element of full-thickness narrowing of the retropatellar cartilage superior of the a quite ow er and there is a small osteochondral defect in the medial facet retropatellar cartilage. Also signi ficant chondral defect in the [place] cartilage over the weight-bearing surface of the medial femora l condyle as well as small marginal osteophytes in the medial compartment. 3. [place] cartilage loss over the lateral tibial plateau with subjacent mild bone edema. No true t ibial plateau fracture evident. 4. Cruciate and collateral ligaments are intact, as is the iliotibial band. 5. Small joint effusion and tiny Garcia's cyst. DATA REPOSITORY:
== END 2020-03-01 04:42 ==
PROVIDERS: PCP Internal Medicine; Visit Provider Student in an Organized Health Care Education/Training Program
DX: S83.282A Other tear of lateral meniscus, current injury, left knee, initial encounter (principal); S83.242A Other tear of medial meniscus, current injury, left knee, initial encounter; M17.12 Unilateral primary osteoarthritis, left knee; M25.462 Effusion, left knee
CPT/HCPCS: 73721

== ENCOUNTER 2020-03-21 03:39 | Outpatient (CLI) | payer OTHER, SELFPAY ==
[2020-03-22 13:49] LABS: COVID-19 RT-PCR UVMMC Result Negative (Negative)
== END 2020-03-21 03:40 | disposition home or self-care (01) ==
LOC: LBO 03:39
PROVIDERS: PCP Internal Medicine; Visit Provider Student in an Organized Health Care Education/Training Program
DX: Z20.822 Contact with and (suspected) exposure to COVID-19 (principal); Z01.818 Encounter for other preprocedural examination
CPT/HCPCS: U0003; U0005

== ENCOUNTER 2020-03-25 07:30 | Day surgery (SDC) | payer OTHER, SELFPAY ==
[2020-03-25] VITALS (10 sets, daily range): BP systolic 118–175; BP diastolic 67–103; PULSE 61–73; RESP 11–18; TEMP 36–36.5; O2SAT 92–97
[2020-03-25] MEDS: Lactated Ringers 1,000 ML 100 ML IV (08:25)
[2020-03-25] MEDS: ceFAZolin 2 GM/50 ML BAG IVPB (09:12)
[2020-03-25] MEDS: Bupivacaine 0.25% Pres-Free 30 ML VIAL ×2 (09:57→10:45)
[2020-03-25] MEDS: EPINEPHrine 30 MG/30 ML VIAL (10:00)
[2020-03-25] MEDS: EPINEPHrine 1 MG/ML AMP pres-free (10:01)
--- NOTE | 2020-03-25 11:09 | PDOC.DSDIS_ITS ---
Discharge Plan Disposition Patient Disposition: HOME Condition: Stable Discharge Details Reason For Visit: Left knee surgery Attending Provider: Gustavo Coffey Primary Care Provider: Batool Padilla Home Meds and New Rx's Prescriptions: New ibuprofen 800 mg tablet 800 mg PO BID PRN (Reason: pain, moderate) Qty: 60 RF: 0 oxycodone 5 mg tablet 5 - 10 mg PO Q4H PRN (Reason: moderate to severe pain) Qty: 16 RF: 0 Continued aspirin [Adult Low Dose Aspirin] 81 mg tablet,delayed release (DR/EC) 81 mg PO DAILY RF: 0 Discontinued ibuprofen [Motrin IB] 200 mg capsule 800 mg PO Q6H PRNRF: 0 Discharge Instructions Additional Instructions: Surgery: Knee arthroscopy with partial medial meniscectomy, partial lateral meniscectomy, patellofemoral chondroplasty, medial femoral condyle abrasion arthroplasty, and extensive synovectomy Activity: Weightbearing as tolerated. Advance range of motion as comfort allows. Recommend ice and elevation to minimize swelling and discomfort. No knee brace or crutches required as soon as comfortable. No deep knee flexion for 8 weeks. Recommend avoiding cutting, pivoting, sports, or squatting for 6-8 weeks. A physical therapy prescription will be sent electronically to start in 2 to 3 weeks. Prescriptions: Resume home aspirin 81 mg daily starting tomorrow Ibuprofen 800 mg take 1 every 12 hours with a meal as needed for moderate pain Oxycodone 5 mg take 1-2 every 4-6 hours as needed for severe pain You may use lean-wgu-exjeixh Tylenol (acetaminophen) as needed for mild pain. These pain medications may be taken all at once or in different combinations as needed. Also, recommend Colace (docusate) as a stool softener as surgery and pain medicine cause constipation. Dressings: Leave dressing in place for 2-3 days. May then remove and leave open to air or cover incisions with Band-Aids. May shower after 5 days. Follow-up: 2 weeks with an orthopedic physician's medical office assistant instructor (10:00 AM on 04/09/20) and [address] Coffey (9:00 AM on 05/07/20) Let us know right away if you develop any redness, drainage, fevers, chest pain, or trouble breathing. Do not drink alcohol or drive for at least 24 hours after anesthesia. Please call the office during business hours with any questions or concerns. Referrals: Gustavo Coffey MD [ [facility] STAFF PHYSICIAN] - Discharge Orders Discharge Orders: Discharge Order (Routine); Ordered 03/25/20 Ordered By: Gustavo Coffey DS: Diagnosis Discharge Diagnosis (1) Knee cartilage, torn, left: Status: Acute (2) Chondromalacia patellae of left knee: Status: Acute (3) Complex tear of medial meniscus of left knee as current injury: Status: Acute (4) Complex tear of lateral meniscus of left knee: Status: Acute
--- NOTE | 2020-03-25 11:37 | ROE_ITS ---
Date of service: 03/25/20 Time of Service: 10:00 Operative Note Operative Note DATE OF PROCEDURE: 03/25/20 PRE-OP DIAGNOSIS: Left 1. Medial meniscus tear 2. Lateral meniscus tear 3. Medial femoral condyle cartilage lesion 4. Patellar cartilage lesion 5. Synovitis POST-OP DIAGNOSIS: other Left 1. Medial meniscus tear 2. Lateral meniscus tear 3. Medial femoral condyle cartilage lesion 4. Patellar and trochlear cartilage lesions 5. Synovitis 6. Moderate tricompartmental arthritic degenerative changes PROCEDURE: Left 1. Arthroscopic partial medial & lateral meniscectomy, CPT #30686 2. Greater than 2 compartment synovectomy, CPT #60201: Medial, lateral, patellofemoral, and intercondylar 3. Chondroplasty, CPT #58078: Medial patellar facet and central trochlea 4. Medial femoral condyle abrasion arthroplasty, CPT # 97482 SURGEON: Gustavo Coffey BEHAVIORAL HEALTH COUNSELOR: Moraima Miner ANESTHESIA: GETA and local ESTIMATED BLOOD LOSS: 5 PATHOLOGY: none sent TOURNIQUET TIME: 0 COMPLICATIONS: None Patient was transported to: PACU Patient's condition: stable Implants: None Indications: Please see complete medical record for details. Findings: Moderate undersurface patella medial facet cartilage irregularity, fraying and thinning mostly grade 3. Central trochlear approximately 10 x 10 mm full-thickness cartilage defect with loose flap edges. Lateral aspect medial femoral condyle cartilage defect?possible old OCD versus posttraumatic change from prior radiofrequency chondroplasty?near full-thickness cartilage loss circumferentially and thin cartilage Over central bony prominence. Moderate synovitis patellofemoral compartment, anterior medially, anterolaterally, and intercondylar area. Large unstable horizontal degenerative type posterior horn medial meniscus tear with with extension into a complex component near the posterior horn body junction and radially into the meniscal body. Large unstable horizontal degenerative type posterior horn lateral meniscus tear with fraying and partial injury of the lateral meniscal root but no root avulsion. Significant tibial articular cartilage loss moderate to full-thickness lateral compartment and moderately medial compartment. Intact ACL and PCL. Procedure Description: In the operating room, genral anesthesia was induced. The patient was positioned supine on the operating room table. All bony prominences were well-padded. Preoperative antibiotics were administered. The knee was prepped and draped in the usual sterile fashion. The correct patient, procedure, and side of the procedure were all verified prior to incision. Exam under anesthesia was performed. 10 cc of 0.25% bupivacaine containing epinephrine was infiltrated about the anterior medial and anterior lateral knee arthroscopy portals. The portals were established and a complete diagnostic arthroscopy was performed with relevant findings detailed above. The mechanical shaver was then used to remove pathologic impinging synovium anteromedial and anterolaterally as well as engaging patellofemoral compartment. The knee was brought into extension with valgus stress and attention was then turned to the injured medial meniscus tissue. It was probed and superior and leaflet fragments were unstable, significantly frayed, and degenerative. Using a combination of hand instruments including meniscal biters and a power shaver and working through the anteromedial and anterolateral compartments the meniscus was debrided of all torn tissue to a stable margin. Care was taken to preserve as much meniscus tissue was possible. The meniscal remnant was probed and found to have a stable margin, stable root, no other tears, and contoured appropriately into the meniscal body uninjured tissue. The gizsah-so-pbwf position was obtained and attention was then turned to the injured lateral meniscus tissue. It was probed and superior leaflet was unstable and the somewhat vertical inferior fragment more stable. The root attachment was stable although significantly frayed and throughout the root and posterior horn degenerative in appearance. Using a combination of hand instruments including meniscal biters and a power shaver the meniscus was debrided of all torn tissue to a stable margin. Care was taken to preserve as much meniscus tissue was possible and this required leaving a small undersurface vertical tear that was debrided. This meniscal remnant was probed and found to have a stable margin, it was well debrided for possible scarring, stable connection into the root, no other tears, and left in place to avoid subtotal equivalent posterior horn lateral meniscus resection. Arthroscopic inspection was returned to the patellofemoral cartilage. Using various extension and flexion positioning the central trochlear cartilage defect was localized and the free loose cartilage flaps were removed using mechanical shaver as a chondroplasty to a stable lesion border. The undersurface of the medial facet of the patella was irregular in contour likely from prior chondroplasty with significant fissures and frayed tissue which were debrided using mechanical shaver to a relatively stable margin but the contour had remained irregular underneath to avoid full-thickness cartilage and bone resection. Finally the knee was allowed to rest in about 90 degrees of flexion and inspection of the lateral aspect of the medial femoral condyle bone and cartilage lesion was performed. It was felt to have a stable cartilage margin. It was prominent and irregular in shape and mostly bone and structure. Again, i t was unclear if this was a result of prior chondroplasty or old injury like OCD. As it was irregular and concerned about impinging eventually on the notch or medial compartment that had relatively preserved adjacent cartilage, the decision was made to proceed with a smoothing type resection form of abrasion arthroplasty. The mechanical shaver was used to smooth and contour the bony prominence centrally and establish a more regular rounded condyle shape. The resulting exposed subchondral bone had a bleeding bed. Under direct arthroscopic visualization an 18-gauge needle was passed into the knee from superior lateral to the superior patellar pouch. The knee was copiously irrigated with arthroscopic fluid until there was a clear effluent before being drained of all fluid. The anteromedial anterolateral portals were closed in 3-0 Monocryl in a buried interrupted fashion. 20 cc of 0.25% bupivacaine with epinephrine containing 4 mg of morphine was infiltrated into the knee through the previously placed needle. Mastisol, Steri-Strips, dry 4 x 4 gauze, and sterile soft roll wrapped about the knee. The right lower extremity was then wrapped in a gentle compressive Damon bandage. The patient awoke from anesthesia without complication and was transferred to the recovery room in a stable condition.
[2020-03-25] MEDS: fentaNYL 100 MCG/2 ML VIAL IVP ×2 (11:51→12:11)
[2020-03-25] MEDS: oxyCODONE 5 MG TAB PO (13:14)
== END 2020-03-25 14:39 | disposition home or self-care (01) ==
PROVIDERS: PCP Internal Medicine; Visit Provider Student in an Organized Health Care Education/Training Program
PROC: (CPT 29870; principal; 2020-03-25 09:00)
DX: S83.232A Complex tear of medial meniscus, current injury, left knee, initial encounter (principal); S83.272A Complex tear of lateral meniscus, current injury, left knee, initial encounter; M94.8X6 Other specified disorders of cartilage, lower leg; M65.862 Other synovitis and tenosynovitis, left lower leg; X58.XXXA Exposure to other specified factors, initial encounter; G47.33 Obstructive sleep apnea (adult) (pediatric); F17.210 Nicotine dependence, cigarettes, uncomplicated; E66.9 Obesity, unspecified
CPT/HCPCS: 29879; 29876; 29880; J0131; J0171; J0690; J1100; J1885; J2001; J2405; J3010

== ENCOUNTER 2020-12-23 20:32 | Outpatient (REF) | payer MEDICARE, SELFPAY ==
[2020-12-23 21:12] LABS: Hemoglobin A1C 6.4 % (<5.7)
[2020-12-23 21:37] LABS: ALT 37 U/L (16-63); AST 21 U/L (15-37); Alkaline Phosphatase 82 U/L (46-116); Anion Gap 8.7 mmol/L (3-11); BUN 22 mg/dL (7-18); Bilirubin, Total 0.2 mg/dL (0.2-1.0); CO2 28.3 mmol/L (21.0-32.0); CREATININE 1.2 mg/dL (0.70-1.30); Calcium 8.8 mg/dL (8.5-10.1); Calculated LDL 90 mg/dL (<100); Chloride 105 mmol/L (98-107); Cholesterol 168 mg/dL (<200); Glucose 135 mg/dL (74-106); HDL Cholesterol 38 mg/dL (40-60); Potassium 4.5 mmol/L (3.5-5.1); Sodium 142 mmol/L (136-145); Total Protein 7.7 g/dL (6.4-8.2); Triglyceride 200 mg/dL (<150)
== END 2020-12-23 20:33 | disposition home or self-care (01) ==
LOC: LBN 20:32
PROVIDERS: PCP Nurse Practitioner Adult Health; Visit Provider Nurse Practitioner Adult Health
DX: R03.0 Elevated blood-pressure reading, without diagnosis of hypertension (principal); R73.01 Impaired fasting glucose; R74.8 Abnormal levels of other serum enzymes; R79.89 Other specified abnormal findings of blood chemistry; Z68.36 Body mass index [BMI] 36.0-36.9, adult
CPT/HCPCS: 80053; 80061; 83036

== ENCOUNTER 2022-01-19 02:15 | Outpatient (CLI) | payer MEDICARE, SELFPAY ==
--- NOTE | 2022-01-19 07:30 | DI.CTLCSR_ITS ---
Exam(s) CT CHEST LUNG CANCER SCREEN EXAM: CT CHEST LUNG CANCER SCREEN CLINICAL HISTORY: Screening for lung cancer,former smoker, z87.891 TECHNIQUE: Imaging Protocol: Axial computed tomography images with coronal and sagittal reformatted images were created and reviewed. Low dose screening protocol. COMPARISON: No exams were available for comparison FINDINGS: Tracheobronchial tree: No bronchiectasis or mucus plugging.. Mediastinum and Yvonne: No dominant adenopathy or fluid collection. Pulmonary parenchyma: No consolidation or dominant measurable mass. Moderate emphysematous changes, g reater in the upper lobes.. Lung Nodules: None. Pleura: No effusion. No pneumothorax. Heart: The heart is not dilated. Mild coronary artery calcifications are seen. Aorta: Thoracic aorta non-dilated. Mild calcification. Upper abdomen: Unremarkable. Bones: Degenerative disc changes and mild scoliosis. Soft Tissues: Unremarkable. IMPRESSION: No suspicious pulmonary nodules. Lung RADS Cat 1 - Negative: No nodules and definitely benign nodules Lung-RADS 1.0 CATEGORIES: Category 0 - Prior chest CT exam(s) being located for comparison. Category 1 - Annual screening in 12 months. No nodules or definitely benign nodules. Category 2 - Annual screening in 12 months. Benign appearance. Nodules with low likelihood of becomin g active cancer. Category 3 - 6-month follow-up. Probably benign. Short-term follow-up suggested. Nodules with low lik elihood of becoming active cancer. Category 4A - 3-month follow-up and CT/PET if >8 mm in size. Suspicious finding. Findings which requi re additional testing. Category 4B - Findings which require additional testing and tissue sampling. Category 4X - Category 3 or 4 nodules with additional features or imaging findings that increases the suspicion of malignancy. Modifier S- Potentially clinically significant findings (non lung cancer) RADIATION DOSE DELIVERED: 104.55mGy.cm Total DLP 2.21mGy!Error CTDIvol DATA REPOSITORY: All CT scans at this facility are submitted to the National Radiology Data Registry (NRDR) Dose Index Registry (DIR) with the [employer] (A[employer]). RADIATION OPTIMIZATION: All CT scans at this facility use at least one of these dose optimization te chniques: automated exposure control; mA and/or kV adjustment per patient size (includes targeted exa ms where dose is matched to clinical indication); or iterative reconstruction.
== END 2022-01-19 02:35 ==
LOC: DI 02:15
PROVIDERS: PCP Nurse Practitioner Adult Health; Visit Provider Nurse Practitioner Adult Health
DX: Z12.2 Encounter for screening for malignant neoplasm of respiratory organs (principal); Z87.891 Personal history of nicotine dependence; J43.8 Other emphysema
CPT/HCPCS: 71271

== ENCOUNTER 2022-02-02 02:58 | Outpatient (CLI) | payer MEDICARE, SELFPAY ==
[2022-02-02 07:33] LABS: Anion Gap 9.4 mmol/L (3-11); BUN 21 mg/dL (7-18); CO2 24.6 mmol/L (21.0-32.0); CREATININE 1.1 mg/dL (0.70-1.30); Calcium 8.5 mg/dL (8.5-10.1); Calculated LDL 89 mg/dL (<100); Chloride 104 mmol/L (98-107); Cholesterol 167 mg/dL (<200); Estimated GFR 72.67 (mL/min/1.73m2); Glucose 144 mg/dL (74-106); HDL Cholesterol 40 mg/dL (40-60); Potassium 4.3 mmol/L (3.5-5.1); Sodium 138 mmol/L (136-145); Triglyceride 191 mg/dL (<150)
[2022-02-02 08:32] LABS: Hemoglobin A1C 6.7 % (<5.7)
== END 2022-02-02 02:59 | disposition home or self-care (01) ==
LOC: LBO 02:58
PROVIDERS: PCP Nurse Practitioner Adult Health; Visit Provider Nurse Practitioner Adult Health
DX: I10 Essential (primary) hypertension (principal); R73.03 Prediabetes; R74.8 Abnormal levels of other serum enzymes
CPT/HCPCS: 36415; 80048; 80061; 83036

== ENCOUNTER → 2023-12-23 10:44 | Outpatient (BNVA) | payer MEDICARE, SELFPAY | PROVIDERS: PCP Nurse Practitioner Adult Health; Referring Provider Nurse Practitioner Adult Health; Visit Provider Physical Therapy Assistant | DX: Z12.11 Encounter for screening for malignant neoplasm of colon (principal); Z86.0100 Personal history of colon polyps, unspecified; I10 Essential (primary) hypertension; E11.9 Type 2 diabetes mellitus without complications ==

== ENCOUNTER 2024-01-03 08:24 | Day surgery (SDC) | payer MEDICARE, SELFPAY ==
--- NOTE | 2024-01-02 17:14 | W.PM.DSUDISC ---
Date of service: 01/03/24 Time of Service: 10:19 Discharge Plan Disposition Patient Disposition: Home Condition: Good Discharge Details Reason For Visit: screening colonoscopy Attending Provider: Geoff Abrams Primary Care Provider: Aury Gonzales Home Meds and New Rx's Prescriptions: Continued ibuprofen 200 mg tablet 400 mg PO Q6H PRN (DME) blood-glucose meter Misc See Rx Instructions .MEDSUPPLY Qty: 1 0RF Rx Instructions: As directed to check blood glucose daily. No insulin. Dispense covered brand. irbesartan-hydrochlorothiazide 300-12.5 mg tablet 1 tab PO DAILY Qty: 90 3RF (DME) lancets [OneTouch Delica Plus Lancet] 33 gauge misc See Rx Instructions .Route Qty: 100 0RF Rx Instructions: E11.9 for daily monitoring for A1C <7% (DME) OneTouch Verio test strips Strip See Rx Instructions .ROUTE .COMPLEX Qty: 300 0RF Dose Instruction: USE TO TEST DAILY Rx Instructions: USE TO TEST DAILY Discontinued bisacodyl [Dulcolax (bisacodyl)] 5 mg tablet,delayed release (DR/EC) 5 mg PO ONCE Qty: 4 0RF Rx Instructions: Take per colonoscopy instructions provided by ordering providers office polyethylene glycol 3350 17 gram/dose powder 17 g PO ONCE Qty: 238 0RF Rx Instructions: Take per colonoscopy instructions provided by ordering providers office Discharge Instructions Instructions: Colon polyps Additional Instructions: Saritha, it was very nice meeting you today, and I hope you are comfortable during the procedure. Everything went very smoothly. Your prep was excellent and I could see everything fine. I did find, and removed, 2 polyps today. These were both quite small, and both will be sent off for testing. Once we know the nature of these polyps, we can use that information to offer recommendations on timing of your next colonoscopy. Those results usually take a week or so, but once my office has them, we will be in touch. If you have any questions in the meantime, please do not hesitate to ask. 1. If tolerated, consume a soft, low fiber diet for 1-2 days. 2. Do not drive, drink alcohol, operate machinery, make critical decisions, or do activities that require coordination or balance for 24 hours. 3. Because air was put into your colon during the procedure, expelling air from your rectum (passing gas or farting) is normal. 4. You may not have a bowel movement for 1-3 days because of the colonoscopy prep. This is normal. 5. You may experience a sore throat for 24 to 48 hours. You may use throat lozenges or gargle with warm salt water to relieve the discomfort. 6. Because air was put into your stomach during the procedure, you may experience some belching. 7. Go directly to the emergency room if you notice any of the following: Develop chills (warm to touch), or if you have a thermometer and your temperature is above 101 Difficulty breathing or difficultly swallowing Persistent vomiting Severe abdominal pain, other than gas cramps Severe chest pain Black, tarry stools Any bleeding ? exceeding one tablespoon 8. Call your physician if the site where your intravenous was started becomes red, swollen, painful, and warm to touch. 9. Your physician has reviewed your pre-procedure medications. Please continue to take those medications as previously ordered. You will be given specific information/education regarding any changes to your medications before leaving. Stand Alone Forms: Anesthesia Discharge Inst., Farnaz Bearden (DSU) Activity:: Activity as Tolerated Diet:: As Tolerated Discharge Orders Discharge Orders: Discharge Order (Routine); Ordered 01/02/24 Ordered By: Geoff Abrams DS: Diagnosis Discharge Diagnosis (1) Encounter for screening colonoscopy: Status: Acute Asessment and Plan: fall polypectomy results
--- NOTE | 2024-01-02 17:23 | W.COLOREPORT ---
Date of service: 01/03/24 Time of Service: 10:21 Colonoscopy Report Date of procedure: 01/03/24 Pre-op diagnosis general: screening colonoscopy Post-op diagnosis procedure note: other (Colon polyps) Procedure: colonoscopy with polypectomy Surgeon: Geoff Abrams Anesthesia Type: General:No Airway Estimated blood loss (mL): 5 Pathology: other (0.25 cm flat polyp at 80 cm, 0.25 cm flat polyp at 60 cm) Complications: None Disposition: same day Indications: Saritha is a 73 year old man who needs his next screening colonoscopy Prep: Miralax/Dulcolax Procedure Start Time: 09:55 Procedure End Time: 10:16 Retraction Time: 15 Findings: 0.25 cm flat polyp at 80 cm, 0.25 cm flat polyp at 60 cm Procedure Description: After the induction of monitored anesthetic care, and with the patient in left lateral decubitus position, I began by performing an external anorectal exam.? Perineum and skin were normal, as was the anal verge.? There was no evidence of external hemorrhoids.? Next, I performed a digital rectal exam.? I did not appreciate any abnormal findings.? Next, I advanced a colonoscope into the rectal vault.? I performed retroflexion.? This appeared normal.? Using insufflation, I then advanced the colonoscope beyond the rectal folds and into the sigmoid colon before advancing towards the cecum.? The quality of the prep was excellent.? The scope was noted to be in the cecum by identification of the ileocecal valve and appendiceal orifice.? I then began withdrawing the colonoscope using repeated irrigation as necessary for full evaluation of the colonic mucosa. Around 80 cm from the anal verge I identified a 0.25 cm polyp. ?It appeared flat in character. ?I was able to remove this with a cold forcep polypectomy. ?I examined the site, and there was minimal bleeding. ?Once this was completed, I continued to withdraw the scope and examine the remainder of the colonic mucosa. I found another flat polyp around 60 cm from the anal verge. This was also flat, and also removed with cold forceps. There was minimal bleeding here as well. Once the scope was withdrawn to the level of the rectum, great care was taken to examine portions of the rectal folds.? Finally, the scope was withdrawn and the patient was brought to the same-day surgery recovery unit as the anesthetic wore off. ?The findings and instructions were shared with the patient prior to discharge. [place] Bowel Prep [place] Bowel Prep Right Colon: 3 Left Colon: 3 Transverse Colon: 3 Total Score: 9
[2024-01-03 08:53] VITALS: BP 157/87; PULSE 68; RESP 16; TEMP 36.5; O2SAT 95
[2024-01-03] MEDS: Normal Saline Flush 10 ML SYR IV (09:10)
--- NOTE | 2024-01-03 09:44 | ANES.PREOP_ITS ---
General Info Date of Service Date Performed: 01/03/24 Height: 5 ft 10 in Weight: 115.3 kg Body Mass Index (BMI): 36.4 Surgical Procedure: Operation Date: 01/03/24 09:50 Proposed Procedure Side Surgeon p Colonoscopy Geoff Abrams MD Actual Procedure Side Surgeon p Colonoscopy Geoff Abrams MD Pre-Op Diagnosis Post-Op Diagnosis colonoscopy w/ Hx of tubular adenoma Meds Allergies and Home Medications Allergies Allergy/AdvReac Type Severity Reaction Status Date / Time No Known Allergies Allergy Verified 01/03/24 08:50 Home Medication ?Medication ?Instructions ?Recorded ibuprofen 200 mg tablet 400 mg PO Q6H PRN 12/23/20 blood-glucose meter #1 ea 02/02/22 irbesartan 300 1 tab PO DAILY #90 tabs 02/18/23 mg-hydrochlorothiazide 12.5 mg tablet lancets 33 gauge (OneTouch Delica #100 ea 07/20/23 Plus Lancet) blood sugar diagnostic ([place] #300 strips 12/01/23 Verio test strips) Current Visit Medications: Current Medications Generic Name Dose Route Start Last Admin Trade Name Freq PRN Reason Stop Dose Admin IV Miscellaneous Supplies 1 each 01/03/24 06:00 Iv Access IV 01/03/24 23:59 DIRECTED ISABELLA Ondansetron HCl 4 mg 01/02/24 17:24 Ondansetron 4 Mg/2 Ml Vial IVP 02/01/24 17:23 Q4H PRN PRN Nausea / Vomiting Sodium Chloride 0 ml 01/03/24 06:00 01/03/24 09:10 Normal Saline Flush 10 Ml Syr IV 01/03/24 23:59 10 ml PRN PRN Administration Sodium Chloride 0 ml 01/03/24 06:00 Normal Saline 10 Ml Vial IJ 01/03/24 23:59 DIRECTED PRN Sterile Water 0 ml 01/03/24 06:00 Water,Injection,Sterile 10 Ml Vial IJ 01/03/24 23:59 DIRECTED PRN PFSH Active Problems Active Problems: Problem Status Onset Code Diabetes type 2, controlled Acute ~01/2022 E11.9 Primary hypertension Acute ~12/2021 I10 History of nicotine use Acute Z87.891 Adenomatous colon polyp Resolved ~07/2018 D12.6 Low serum high density lipoprotein (HDL) Acute ~06/2018 R74.8 [place] cardiac risk >20% in next 10 years Acute Z91.89 Body mass index (BMI) of 36.0 to 36.9 Chronic Z68.36 Medical History Medical History Complex tear of lateral meniscus of left knee Complex tear of medial meniscus of left knee as current injury Chondromalacia patellae of left knee Knee cartilage, torn, left Tear of lateral meniscus of left knee s/p arthroscopy 04/04/2018 injected: 06/14/2018 Impaired fasting glucose (~06/2018) 06/2018:120; A1C 6.4% (2020) Pre-hypertension BMI (body mass index) 20.0-29.9 Encounter for colonoscopy due to history of adenomatous colonic polyps Strain of left knee DOI: 01/20/18 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 Marijuana: t-2: pipe Vital Signs and Lab Results Vital Signs Most Recent Vital Signs in EMR: Most Recent Vital Signs Temp Pulse Resp BP Pulse Ox 36.5 C 68 16 157/87 H 95 01/03/24 08:53 01/03/24 08:53 01/03/24 08:53 01/03/24 08:53 01/03/24 08:53 Lab Results Blood Type / Crossmatch: No Data to Display Complete Blood Count: No Data to Display Complete Metabolic Panel: No Data to Display Liver Function Panel: No Data to Display Coagulation Panel: No Data to Display Cardiac Panel: No Data to Display Arterial Blood Gas: No Data to Display Venous Blood Gas: No Data to Display Pancreas Panel: No Data to Display Thyroid Panel: No Data to Display Infectious Disease: No Data to Display Blood Cultures: No Data to Display Toxicology Panel: No Data to Display Anesthesia Assessment and Plan Anesthesia History Personal History: No History of Anesthesia Complications Family History: No Family History of Anesthesia Complications Exercise Tolerance Exercise Tolerance: Metabolic Equivalents>4 Pertinent Negatives Pertinent Negatives: No Symptoms of GERD Cardiac & Pulmonary Exam Cardiac Exam: Normal S1/S2 Heart Sounds Pulmonary Exam: Clear Bilateral Breath Sounds Implantable Cardiac Device Does patient have a Pacemaker or an ICD?: No Airway Exam Known Difficult Airway: No Mallampati Class: 3 Mouth Opening: Normal (> 3cm) Thyromental Distance: Greater than 3 cm Neck Range of Motion: Full ROM Neck Circumference: Thick Teeth Condition: Normal Dentition ASA Classification ASA Score: ASA 2 Emergency Case?: No NPO Status NPO Status: NPO Clears >2 hours, Solids >8 hours Anesthesia Plan Resuscitation Status: Full Code Anesthesia Technique: General Anesthesia Airway Planned: Natural Airway Monitors Used: Standard Monitors
[2024-01-03 09:45] VITALS: BMI 36.4
--- NOTE | 2024-01-03 10:03 | BOWEL_PTH ---
PATIENT: Saritha Guzman LOC: [facility] U#:[id number] AGE/SX: 73/M ROOM: RE01/03/[address]: Geoff Abrams MD : 1950 BED: DIS: 01/03/2024 SPEC #: [id number] RECD: 01/03/24 12:52 STATUS: MATTHIAS REQ #: [id number] LINO: 01/03/24 10:[address]: Geoff Abrams DEPT: Surgical Specimen RECD BY: Felicia Eason ENTERED: 01/03/24 12:53 SP TYPE: Bowel OTHR DR: Aury Gonzales, ERMIAS Tissues: 1 - BIOPSY BOWEL 2 - BIOPSY BOWEL Procedures: GROSS AND MICRO LEVEL 4 Comments: [id number]
[2024-01-03 10:18] VITALS: BP 141/80; PULSE 81; RESP 18; TEMP 36.5; O2SAT 93
--- NOTE | 2024-01-03 10:26 | W.ANESPOSTOP ---
Postoperative Evaluation Date, Time and Location Date Performed: 01/03/24 Time Performed: 10:26 Patient Location: Day Surgery Unit Vital Signs Most Recent Imported Vital Signs: Most Recent Vital Signs Temp Pulse Resp BP Pulse Ox 36.5 C 81 18 141/80 H 93 01/03/24 10:18 01/03/24 10:18 01/03/24 10:18 01/03/24 10:18 01/03/24 10:18 Pain Score Most Recent Pain Score: Most Recent Pain Score Pain Level 0 01/03/24 10:18 Assessment Mental Status: Awake (Alert & Oriented to Patient Baseline) Airway and Respiratory Function: Patent airway with normal (patient baseline) respiratory exam Cardiovascular Function: Hemodynamically Stable Hydration Status: Adequately Hydrated Nausea & Vomiting: No Nausea or Vomiting Pain: Pt. Denies Any Pain Peripheral Nerve Block: Patient did not receive a nerve block
[2024-01-03 10:48] VITALS: BP 136/100; PULSE 61; RESP 16; TEMP 36.7; O2SAT 95
== END 2024-01-03 11:00 | disposition home or self-care (01) ==
LOC: SUR 08:25
PROVIDERS: PCP Nurse Practitioner Adult Health; Visit Provider Surgery
PROC: 0DJD8ZZ Inspection of Lower Intestinal Tract, Via Natural or Artificial Opening Endoscopic (ICD-10-PCS; CPT 45378; principal; 2024-01-03 09:45)
DX: Z12.11 Encounter for screening for malignant neoplasm of colon (principal); D12.4 Benign neoplasm of descending colon; E11.9 Type 2 diabetes mellitus without complications; I10 Essential (primary) hypertension
CPT/HCPCS: 45380; 88305; J2003; J2704

== ENCOUNTER 2024-07-19 12:18 | Outpatient (REF) | payer MEDICARE, SELFPAY ==
[2024-07-19 16:11] LABS: Anion Gap 11.4 mmol/L (3-11); BUN 26 mg/dL (7-18); CO2 24.6 mmol/L (21.0-32.0); CREATININE 1.2 mg/dL (0.70-1.30); Calcium 8.8 mg/dL (8.5-10.1); Chloride 104 mmol/L (98-107); Estimated GFR 64.65 (mL/min/1.73m2); Glucose 105 mg/dL (74-106); Potassium 4.4 mmol/L (3.5-5.1); Sodium 140 mmol/L (136-145)
== END 2024-07-19 12:19 | disposition home or self-care (01) ==
LOC: LBN 12:18
PROVIDERS: PCP Nurse Practitioner Adult Health; Visit Provider Nurse Practitioner Adult Health
DX: I10 Essential (primary) hypertension (principal); E11.9 Type 2 diabetes mellitus without complications
CPT/HCPCS: 80048

== ENCOUNTER 2024-12-18 14:00 | Outpatient (CLI) | payer MEDICARE, SELFPAY ==
--- NOTE | 2024-12-18 14:15 | DI.RAD_ITS ---
Exam(s) XR HAND LT COMPLETE EXAM: XR HAND LT COMPLETE CLINICAL HISTORY: left thumb pain. TECHNIQUE: 2D digital imaging was performed of the left hand. Three views were obtained. AP, lateral and oblique views were obtained. COMPARISON: No exams were available for comparison FINDINGS: BONES: No acute fracture is present. No bony destructive lesion is seen. JOINTS: No dislocation present. There is osteoarthritis of the left hand characterized by joint space narrowing and osteophytes. The findings are most marked at the 1st CMC joint and the interphalangeal joint of the thumb. SOFT TISSUE: Normal. IMPRESSION: Osteoarthritis of the left hand. DATA REPOSITORY: RADIATION DOSE DELIVERED:
== END 2024-12-18 14:01 | disposition home or self-care (01) ==
LOC: DIORS 12-19 08:56
PROVIDERS: PCP Nurse Practitioner Adult Health; Referring Provider Nurse Practitioner Adult Health; Visit Provider Physician Assistant
DX: M79.645 Pain in left finger(s) (principal); M18.12 Unilateral primary osteoarthritis of first carpometacarpal joint, left hand
CPT/HCPCS: 20604; J1010; 73130

== ENCOUNTER → 2025-02-06 00:39 | Outpatient (CLI) | payer MEDICARE, SELFPAY ==
--- NOTE | 2025-02-06 07:30 | DI.CTLCSR_ITS ---
Exam(s) CT CHEST LUNG CANCER SCREEN EXAM: CT CHEST LUNG CANCER SCREEN CLINICAL HISTORY: Screening for lung cancer,H/O NICOTINE USE,Z87.891 TECHNIQUE: Imaging Protocol: Axial computed tomography images with coronal and sagittal reformatted images were created and reviewed. Lung Computer Aided Detection (CAD) was utilized. COMPARISON: CT CT CHEST LUNG CANCER SCREEN from 01/19/2022 FINDINGS: Tracheobronchial tree: Patent where visualized. No bronchiectasis. Pulmonary parenchyma: No consolidation or dominant measurable mass. Moderately severe emphysematous changes are present in the lungs. There is a calcified granuloma in the left lower lobe. There is mild pulmonary fibrosis present. Lung Nodules: There is a solitary 3 mm nodule in the right lower lobe (series 4, image 112). Mediastinum and Yvonne: No dominant adenopathy or fluid collection. The esophagus is unremarkable. Thyroid gland: Unremarkable. Lymph nodes: Unremarkable. Pleura: No effusion or pneumothorax. Heart: The heart is not dilated. Mild coronary artery calcification is present. No pericardial effusion. Aorta: Thoracic aorta non-dilated.Mild atherosclerotic calcification is present. Upper abdomen: Unremarkable. Soft Tissues: Unremarkable. Bones: Within normal limits. IMPRESSION: 3 mm right lower lobe pulmonary nodule. Lung RADS Cat 2 - Benign Appearance / Behavior: Nodules with a very low likelihood of becoming a clinically active cancer due to size or lack of growth Lung-RADS 1.0 CATEGORIES: Category 0 - Prior chest CT exam(s) being located for comparison. Category 1 - Annual screening in 12 months. No nodules or definitely benign nodules. Category 2 - Annual screening in 12 months. Benign appearance. Nodules with low likelihood of becoming active cancer. Category 3 - 6-month follow-up. Probably benign. Short-term follow-up suggested. Nodules with low likelihood of becoming active cancer. Category 4A - 3-month follow-up and CT/PET if >8 mm in size. Suspicious finding. Findings which require additional testing. Category 4B - Findings which require additional testing and tissue sampling. Suspicious finding. Category 4X - Category 3 or 4 nodules with additional features or imaging findings that increases the suspicion of malignancy. Modifier S- Potentially clinically significant finding. (Non lung cancer) RADIATION DOSE DELIVERED: 111.04mGy.cm Total DLP 111.04mGy.cmTotal DLP DATA REPOSITORY: All CT scans at this facility are submitted to the National Radiology Data Registry (NRDR) Dose Index Registry (DIR) with the [employer] ([employer]). RADIATION OPTIMIZATION: All CT scans at this facility use at least one of these dose optimization techniques: automated exposure control; mA and/or kV adjustment per patient size (includes targeted exams where dose is matched to clinical indication); or iterative reconstruction.
== END ==
LOC: DI 00:39
PROVIDERS: PCP Nurse Practitioner Adult Health; Visit Provider Nurse Practitioner Adult Health
DX: Z87.891 Personal history of nicotine dependence (principal)
CPT/HCPCS: 71271